=== PATIENT | male | born 1930 | race Caucasian/White ===

== ENCOUNTER 2017-03-31 18:47 | Inpatient (IN) | payer MEDICARE, BC ==
[~2017-03-31 18:47] MED LIST: ICAPCAP
[2017-03-31 18:49] VITALS: BP 168/80; PULSE 106; RESP 22; TEMP 98.3; O2SAT 88
[2017-03-31 19:11] VITALS: BP 149/82
[2017-03-31] MEDS ORDERED: MULT-142 (19:11)
[2017-03-31] MEDS ORDERED: SODIUM CHLORIDE 0.9% FLUSH 10 ML FLUSH IVF PRN (19:15)
[2017-03-31] MEDS ORDERED: DILTIAZEM HCL 25 MG/5 ML VIAL IV ONE (19:15)
--- NOTE | 2017-03-31 19:35 | PD ---
HPI Chief Complaint: Respiratory Symptoms Time Seen by Provider: 19:03 Travel History International Travel<30 days: No Contact w/Intl Traveler<30days: No Traveled to known affect area: No History of Present Illness HPI Patient is an 87 year old male presenting for evaluation of chest congestion, SOB, productive cough. Symptoms started 1 week ago. He reports chills and night sweats. SOB is worse with exertion and patient feels as if his heart is racing. He denies any N/V diarrhea, abdominal pain, chest pain. Pt denies any medical history but he does not follow with a PCP. PFS Past Medical History Medical History: Denies Significant Hx Diminished Hearing: Yes (DEAF L, HOPI R - HEARING AID) Musculoskeletal: No Neurologic: No Reproductive: No Pneumonia: Yes Tetanus Vaccination: Unknown Influenza Vaccination: No Past Surgical History Cholecystectomy: Yes Ear Surgery: Yes (RIGHT EAR) Social History Alcohol Use: No Tobacco Use: No Substance Use: No Allergies-Medications (Allergen,Severity, Reaction): Coded Allergies: No Known Allergies (Unverified Adverse Reaction, Unknown, 03/31/17) Reported Meds & Prescriptions Reported Meds & Active Scripts Active Reported Multi Vitamin and Mineral (Multiple Vitamins W/ Minerals) 7.5 Mg Iron-400 Mcg Tab Review of Systems Except as stated in HPI: all other systems reviewed are Neg General / Constitutional: Positive: Chills, Other (night sweats) Eyes: No: Blurred Vision HENT: No: Headaches Cardiovascular: Positive: Palpitations, Tachycardia, Dyspnea on exertion, No: Chest Pain or Discomfort, Edema Respiratory: Positive: Cough, Shortness of Breath, No: Wheezing, Pleuritic Pain Gastrointestinal: No: Nausea, Vomiting, Abdominal Pain Genitourinary: No: Dysuria Musculoskeletal: No: Myalgias Neurologic: Positive: Dizziness, No: Weakness Physical Exam Narrative GENERAL: Thin, well-developed, alert male. Resting comfortably in no acute distress. SKIN: Warm and dry. HEAD: Atraumatic. Normocephalic. EYES: Pupils equal and round. No scleral icterus. No injection or drainage. ENT: No nasal bleeding or discharge. Mucous membranes pink and moist. NECK: Trachea midline. No JVD. CARDIOVASCULAR: Irregularly irregular, tachycardic RESPIRATORY: No accessory muscle use. Clear but diminished in bases. GASTROINTESTINAL: Abdomen soft, non-tender, nondistended. Hepatic and splenic margins not palpable. MUSCULOSKELETAL: Extremities without clubbing, cyanosis, or edema. No obvious deformities. NEUROLOGICAL: Awake and alert. No obvious cranial nerve deficits. Motor grossly within normal limits. Five out of 5 muscle strength in the arms and legs. Normal speech. PSYCHIATRIC: Appropriate mood and affect; insight and judgment normal. Data Data Last Documented VS Vital Signs Date Time Temp Pulse Resp B/P (MAP) Pulse Ox O2 Delivery O2 Flow Rate FiO2 03/31/17 20:27 110 22 162/70 (100) 96 Nasal Cannula 2.00 03/31/17 18:49 98.3 Orders Orders Complete Blood Count With Diff (03/31/17 19:15) Comprehensive Metabolic Panel (03/31/17 19:15) B-Type Natriuretic Peptide (03/31/17 19:15) Act Partial Throm Time (Ptt) (03/31/17 19:15) Prothrombin Time / Inr (Pt) (03/31/17 19:15) Magnesium (Mg) (03/31/17 19:15) Ckmb (Isoenzyme) Profile (03/31/17 19:15) Troponin I (03/31/17 19:15) Arterial Blood Gas (Abg) (03/31/17 19:15) Urinalysis - C+S If Indicated (03/31/17 19:15) Iv Access Insert/Monitor (03/31/17 19:15) Electrocardiogram (03/31/17 19:15) Ecg Monitoring (03/31/17 19:15) Oximetry (03/31/17 19:15) Oxygen Administration (03/31/17 19:15) Chest, Single Ap (03/31/17 19:15) Sodium Chloride 0.9% Flush (Ns Flush) (03/31/17 19:15) Diltiazem Inj (Cardizem Inj) (03/31/17 19:15) Ct Pulmonary Angiogram (03/31/17 ) Iohexol 350 Inj (Omnipaque 350 Inj) (03/31/17 21:06) Ceftriaxone Inj (Rocephin Inj) (03/31/17 21:45) Azithromycin Inj (Zithromax Inj) (03/31/17 21:45) Methylprednisolone So Succ Inj (Solumedr (03/31/17 21:45) Albuterol-Ipratropium Neb (Duoneb Neb) (03/31/17 21:45) Blood Culture (03/31/17 21:46) Labs Laboratory Tests Test 03/31/17 19:15 03/31/17 19:45 03/31/17 21:30 White Blood Count 15.8 TH/MM3 Red Blood Count 4.25 MIL/MM3 Hemoglobin 13.2 GM/DL Hematocrit 38.7 % Mean Corpuscular Volume 91.1 FL Mean Corpuscular Hemoglobin 31.0 PG Mean Corpuscular Hemoglobin Concent 34.0 % Red Cell Distribution Width 16.1 % Platelet Count 235 TH/MM3 Mean Platelet Volume 8.5 FL Neutrophils (%) (Auto) 92.0 % Lymphocytes (%) (Auto) 4.0 % Monocytes (%) (Auto) 3.6 % Eosinophils (%) (Auto) 0.1 % Basophils (%) (Auto) 0.3 % Neutrophils # (Auto) 14.5 TH/MM3 Lymphocytes # (Auto) 0.6 TH/MM3 Monocytes # (Auto) 0.6 TH/MM3 Eosinophils # (Auto) 0.0 TH/MM3 Basophils # (Auto) 0.1 TH/MM3 CBC Comment DIFF FINAL Differential Comment Prothrombin Time 11.2 SEC Prothromb Time International Ratio 1.1 RATIO Activated Partial Thromboplast Time 28.9 SEC Blood Urea Nitrogen 34 MG/DL Creatinine 1.12 MG/DL Random Glucose 124 MG/DL Total Protein 7.1 GM/DL Albumin 3.4 GM/DL Calcium Level 8.8 MG/DL Magnesium Level 1.9 MG/DL Alkaline Phosphatase 67 U/L Aspartate Amino Transf (AST/SGOT) 16 U/L Alanine Aminotransferase (ALT/SGPT) 9 U/L Total Bilirubin 1.4 MG/DL Sodium Level 141 MEQ/L Potassium Level 3.9 MEQ/L Chloride Level 105 MEQ/L Carbon Dioxide Level 26.8 MEQ/L Anion Gap 9 MEQ/L Estimat Glomerular Filtration Rate 62 ML/MIN Total Creatine Kinase 73 U/L Troponin I LESS THAN 0.02 NG/ML B-Type Natriuretic Peptide 101 PG/ML Blood Gas Puncture Site RT RADIAL Blood Gas Patient Temperature 37.0 Blood Gas HCO3 23 mmol/L Blood Gas Base Excess -0.2 mmol/L Blood Gas Oxygen Saturation 89 % Arterial Blood pH 7.50 Arterial Blood Partial Pressure CO2 30 mmHg Arterial Blood Partial Pressure O2 55 mmHG Arterial Blood Oxygen Content 15.8 Vol % Arterial Blood Carboxyhemoglobin 1.9 % Arterial Blood Methemoglobin 0.4 % Blood Gas Hemoglobin 12.7 G/DL Oxygen Delivery Device NASAL CANNULA Blood Gas Liter Flow 2 L/M Urine Color YELLOW Urine Turbidity CLEAR Urine pH 5.5 Urine Specific [place] GREATER THAN 1.050 Urine Protein 30 mg/dL Urine Glucose (UA) NEG mg/dL Urine Ketones 40 mg/dL Urine Occult Blood NEG Urine Nitrite NEG Urine Bilirubin NEG Urine Urobilinogen 2.0 MG/DL Urine Leukocyte Esterase NEG Urine RBC 1 /hpf Urine WBC 1 /hpf Urine Squamous Epithelial Cells <1 /hpf Urine Mucus FEW /lpf Microscopic Urinalysis Comment CULT NOT INDICATED MDM Medical Decision Making Medical Screen Exam Complete: Yes Emergency Medical Condition: Yes Interpretation(s) Last Impressions Chest X-Ray 03/31/17 1915 Signed Impressions: Service Date/Time: Friday, March 31, 2017 19:33 - CONCLUSION: No acute disease. Baldemar Donato MD CT Angiography 03/31/17 0000 Signed Impressions: Service Date/Time: Friday, March 31, 2017 21:02 - CONCLUSION: 1. No evidence of pulmonary embolism. 2. Patchy opacities within the right mid lung anteriorly as well as the posterior lung bases bilaterally suggestive of probable pneumonia. 3. Underlying emphysematous changes bilaterally. 4. Coronary artery calcifications. 5. Biapical fibrotic scarring. Baldemar Donato MD Laboratory Tests Test 03/31/17 19:15 03/31/17 19:45 White Blood Count 15.8 TH/MM3 Red Blood Count 4.25 MIL/MM3 Hemoglobin 13.2 GM/DL Hematocrit 38.7 % Mean Corpuscular Volume 91.1 FL Mean Corpuscular Hemoglobin 31.0 PG Mean Corpuscular Hemoglobin Concent 34.0 % Red Cell Distribution Width 16.1 % Platelet Count 235 TH/MM3 Mean Platelet Volume 8.5 FL Neutrophils (%) (Auto) 92.0 % Lymphocytes (%) (Auto) 4.0 % Monocytes (%) (Auto) 3.6 % Eosinophils (%) (Auto) 0.1 % Basophils (%) (Auto) 0.3 % Neutrophils # (Auto) 14.5 TH/MM3 Lymphocytes # (Auto) 0.6 TH/MM3 Monocytes # (Auto) 0.6 TH/MM3 Eosinophils # (Auto) 0.0 TH/MM3 Basophils # (Auto) 0.1 TH/MM3 CBC Comment DIFF FINAL Differential Comment Prothrombin Time 11.2 SEC Prothromb Time International Ratio 1.1 RATIO Activated Partial Thromboplast Time 28.9 SEC Blood Urea Nitrogen 34 MG/DL Creatinine 1.12 MG/DL Random Glucose 124 MG/DL Total Protein 7.1 GM/DL Albumin 3.4 GM/DL Calcium Level 8.8 MG/DL Magnesium Level 1.9 MG/DL Alkaline Phosphatase 67 U/L Aspartate Amino Transf (AST/SGOT) 16 U/L Alanine Aminotransferase (ALT/SGPT) 9 U/L Total Bilirubin 1.4 MG/DL Sodium Level 141 MEQ/L Potassium Level 3.9 MEQ/L Chloride Level 105 MEQ/L Carbon Dioxide Level 26.8 MEQ/L Anion Gap 9 MEQ/L Estimat Glomerular Filtration Rate 62 ML/MIN Total Creatine Kinase 73 U/L Troponin I LESS THAN 0.02 NG/ML B-Type Natriuretic Peptide 101 PG/ML Blood Gas Puncture Site RT RADIAL Blood Gas Patient Temperature 37.0 Blood Gas HCO3 23 mmol/L Blood Gas Base Excess -0.2 mmol/L Blood Gas Oxygen Saturation 89 % Arterial Blood pH 7.50 Arterial Blood Partial Pressure CO2 30 mmHg Arterial Blood Partial Pressure O2 55 mmHG Arterial Blood Oxygen Content 15.8 Vol % Arterial Blood Carboxyhemoglobin 1.9 % Arterial Blood Methemoglobin 0.4 % Blood Gas Hemoglobin 12.7 G/DL Oxygen Delivery Device NASAL CANNULA Blood Gas Liter Flow 2 L/M Vital Signs Date Time Temp Pulse Resp B/P (MAP) Pulse Ox O2 Delivery O2 Flow Rate FiO2 03/31/17 19:22 93 Nasal Cannula 2.00 03/31/17 19:11 102 24 92 Nasal Cannula 2.00 03/31/17 19:11 149/82 (104) 03/31/17 18:49 98.3 106 22 168/80 (109) 88 Room Air Differential Diagnosis CHF versus A. fib with RVR versus metabolic abnormality versus pneumonia versus PE versus other Narrative Course Patient is an 87-year-old male presenting to evaluation of shortness of breath, chest congestion, cough. Patient is a significant past medical history likely because he does not see a doctor. On arrival patient was tachycardic and noted to be in atrial fibrillation with rapid ventricular response with a rate of 113. He ordered and pending. Patient was placed on monitor and storage bin tender and continuous pulse oximetry. Cardizem 10 mg IV 1 dose was ordered. He was placed on oxygen, O2 sats on arrival was 88% on room air. Patient is currently 96% on 3 L. CBC with a white count of 15.8 with left shift BNP is 101 Chemistries BUN of 34, bilirubin 1.4, troponin is negative 1 Chest x-ray was read by the radiologist shows no acute disease. CT angiogram shows no evidence of PE, patchy opacity is within the right mid lung anteriorly as well as posteriorly lung bases bilaterally suggestive of probable pneumonia. This underlying emphysematous changes bilaterally coronary calcifications. Rocephin and azithromycin ordered, DuoNeb 3 as well as IV Solu-Medrol. Patient remained in atrial fibrillation with a rate of 100-103. [facility] paged for admission. Discussed with Dr. Min who accepted admit. Admit orders placed. Sepsis Criteria SIRS Criteria (2 or more): Heart rate over 90, RR > 20 or PaCO2 < 32, WBC > 76445, < 4000 or > 10% bands Sepsis Criteria (SIRS+source): Infect source susp/known Diagnosis Primary Impression: Pneumonia Qualified Codes: J18.9 - Pneumonia, unspecified organism Additional Impressions: Atrial fibrillation with RVR Hypoxia Sepsis Qualified Codes: A41.9 - Sepsis, unspecified organism Admitting Information Admitting Physician Requests: Admit Condition: Stable Romina Velasquez Mar 31, 2017 19:35
[2017-03-31 19:38] VITALS: BP 135/76; PULSE 100; RESP 55; O2SAT 94
[2017-03-31 19:49] LABS: AUTOMATED NEUTROPHIL # 14.5 TH/MM3 (1.8-7.7); BASOPHIL # 0.1 TH/MM3 (0-0.2); BASOPHIL % 0.3 % (0.0-2.0); EOSINOPHIL % 0.1 % (0.0-4.0); HEMATOCRIT 38.7 % (39.0-51.0); HEMO FLAGS DIFF FINAL; LYMPHOCYTE # 0.6 TH/MM3 (1.0-4.8); MEAN CELL VOLUME 91.1 FL (80.0-100.0); MONO % 3.6 % (0.0-8.0); PLATELET COUNT 235 TH/MM3 (150-450); RED BLOOD COUNT 4.25 MIL/MM3 (4.50-5.90); RED CELL DISTRIBUTION WIDTH 16.1 % (11.6-17.2); WHITE BLOOD COUNT 15.8 TH/MM3 (4.0-11.0)
[2017-03-31 20:12] LABS: APTT (PATIENT) 28.9 SEC (24.3-30.1); INTERNATIONAL NORMALIZED RATIO 1.1 RATIO; PROTHROMBIN TIME - PATIENT 11.2 SEC (9.8-11.6)
[2017-03-31 20:16] LABS: ALT (GPT) 9 U/L (12-78); ANION GAP 9 MEQ/L (5-15); AST (GOT) 16 U/L (15-37); BICARBONATE 26.8 MEQ/L (21.0-32.0); BLOOD UREA NITROGEN 34 MG/DL (7-18); CHLORIDE 105 MEQ/L (98-107); GLOMERULAR FILTRATION RATE 62 ML/MIN (>89); MAGNESIUM 1.9 MG/DL (1.5-2.5); POTASSIUM 3.9 MEQ/L (3.5-5.1); SODIUM (NA) 141 MEQ/L (136-145)
[2017-03-31 20:21] LABS: ALKALINE PHOSPHATASE 67 U/L (45-117); TOTAL BILIRUBIN ADULT 1.4 MG/DL (0.2-1.0)
[2017-03-31 20:26] LABS: CREATINE KINASE 73 U/L (39-308)
[2017-03-31 20:27] VITALS: BP 162/70; PULSE 110; RESP 22; O2SAT 96
--- NOTE | 2017-03-31 20:46 | RADRPT ---
EXAM DATE/TIME: 03/31/2017 19:33 [facility] COMPARISON: CHEST SINGLE AP, April 07, 2014, 10:49. INDICATIONS : Short of breath. MEDICAL HISTORY : None. SURGICAL HISTORY : None. ENCOUNTER: Initial ACUITY: 1 week PAIN SCORE: 0/10 LOCATION: Bilateral chest FINDINGS: A single view of the chest demonstrates the lungs to be symmetrically aerated without evidence of mas s, infiltrate or effusion. The cardiomediastinal contours are unremarkable. Osseous structures are intact. CONCLUSION: No acute disease. Baldemar Donato MD on March 31, 2017 at 20:43 Board Certified Radiologist. This report was verified electronically.
[2017-03-31] MEDS ORDERED: IOHEXOL 350 MG/ML 10 ML VIAL (for RAD DIAG) IVCONTRAST ONE (21:06)
[2017-03-31 21:31] LABS: BLOOD GAS BASE EXCESS -0.2 mmol/L (-2-2); BLOOD GAS CARBOXYHEMOGLOBIN 1.9 % (0-4); BLOOD GAS HCO3 23 mmol/L (22-26); BLOOD GAS METHEMOGLOBIN 0.4 % (0-2); BLOOD GAS O2 HGB SATURATION 89 % (90-100); BLOOD GAS OXYGEN CONTENT 15.8 Vol % (12.0-20.0); BLOOD GAS PCO2 30 mmHg (38-42); BLOOD GAS PO2 55 mmHG (61-120); BLOOD GAS TOTAL HGB 12.7 G/DL (12.0-16.0); CRITICAL VALUE YES; DRAW SITE RT RADIAL; LITER FLOW 2 L/M; NUMBER OF ARTERIAL PUNCTURES 1; OXYGEN DEVICE NASAL CANNULA; STAT YES; ULNAR PULSE PRESENT
--- NOTE | 2017-03-31 21:34 | RADRPT ---
EXAM DATE/TIME: 03/31/2017 21:02 [facility] COMPARISON: No previous studies available for comparison. INDICATIONS : Shortness of breath. IV CONTRAST: 75 cc Omnipaque 350 (iohexol) IV RADIATION DOSE: 22.90 CTDIvol (mGy) MEDICAL HISTORY : None SURGICAL HISTORY : Cholecystectomy. ENCOUNTER: Initial ACUITY: 1 day PAIN SCALE: 3/10 LOCATION: Bilateral chest TECHNIQUE: Volumetric scanning of the chest was performed using a pulmonary embolism protocol MIP images were re constructed. Using automated exposure control and adjustment of the mA and/or kV according to patien t size, radiation dose was kept as low as reasonably achievable to obtain optimal diagnostic quality images. DICOM format image data is available electronically for review and comparison. Follow-up recommendations for detected pulmonary nodules are based at a minimum on nodule size and pa tient risk factors according to Fleischner Society Guidelines. FINDINGS: PULMONARY ARTERIES: No filling defects are seen in the pulmonary arteries through the segmental level. LUNGS: Patchy opacities are noted within the bilateral lower lobes posteriorly as well as within the right m id lung anteriorly with probable pneumonia. Underlying emphysematous changes are noted bilaterally. B iapical fibrotic scarring is noted. PLEURAE: There is no pleural thickening or pleural effusion. MEDIASTINUM: There is good visualization of the great vessels of the middle mediastinum. No evidence of mediastin al or hilar adenopathy/mass. Coronary artery calcifications are noted. MUSCULOSKELETAL: Within normal limits for patient age. MISCELLANEOUS: The visualized upper abdominal organs demonstrate no acute abnormality. CONCLUSION: 1. No evidence of pulmonary embolism. 2. Patchy opacities within the right mid lung anteriorly as well as the posterior lung bases bilatera lly suggestive of probable pneumonia. 3. Underlying emphysematous changes bilaterally. 4. Coronary artery calcifications. 5. Biapical fibrotic scarring. Baldemar Donato MD on March 31, 2017 at 21:27 Board Certified Radiologist. This report was verified electronically.
[2017-03-31] MEDS ORDERED: AZITHROMYCIN INJ 500 MG in SODIUM CHLOR 0.9% 250 ML INJ 250 ML IV ONE (21:45)
[2017-03-31] MEDS ORDERED: methylPREDNISolone SOD SUCC 125 MG/2 ML VIAL IV PUSH ONE (21:45)
[2017-03-31] MEDS ORDERED: cefTRIAXone INJ 1,000 MG in SODIUM CHLORIDE 0.9% INJ 100 ML IV ONE (21:45)
[2017-03-31 22:00] VITALS: BP 141/74; PULSE 88; RESP 23; O2SAT 96
[2017-03-31] MEDS: RESP: ALBUTEROL 2.5 MG/IPRATROPIUM 0.5 MG NEB (SCH) INH (22:02)
[2017-03-31 22:07] LABS: BLOOD, URINE NEG (NEG); COMMENT (UR) CULT NOT INDICATED; CULTURE IF INDICATED CULT NOT INDICATED; GLUCOSE,URINE NEG (NEG); KETONE, URINE 40 mg/dL (NEG); MUCUS URINE FEW /lpf (OCC); NITRITE,URINE NEG (NEG); PH, URINE 5.5 (5.0-8.5); SQUAMOUS EPITHELIAL CELL URINE <1 /hpf (0-5); URINE COLOR YELLOW (YELLW/STRAW)
[2017-03-31] MEDS ORDERED: NALOXONE HCL 0.4 MG/ML AMP IV PUSH PRN (22:30)
[2017-03-31] MEDS ORDERED: RESP: IPRATROPIUM 0.5 MG/2.5 ML NEB NEB PRN (22:30)
[2017-03-31] MEDS ORDERED: ASPIRIN EC 325 MG TABEC PO ONE (22:30)
[2017-03-31] MEDS ORDERED: FAMOTIDINE 20 MG TAB PO ONE (22:30)
[2017-03-31] MEDS ORDERED: SODIUM CHLORIDE 0.9% FLUSH 10 ML FLUSH IV FLUSH PRN (22:30)
--- NOTE | 2017-03-31 23:24 | HHI.HP ---
HPI Service [facility] Primary Care Physician No Primary Care Physician Admission Diagnosis SEPSIS, PNA, AFIB W/RVR Diagnoses: Travel History International Travel<30 Days: No Contact w/Intl Traveler <30 Da: No Traveled to Known Affected Are: No History of Present Illness couldnt walk more than 5 feet or else i collapsed something went fast when i walked and i had to sit down thats the reason to come here was short of breath started on friday- about 3 days ago no fever coughing a lot- and has productive yellow sputum- can see that copious sputum at bedside also felt dizziness with these palpitations and thats why stopped- and dizziness will go away took some cough medicine over the counter does not go to any doc no med hx that he knows of ' Past Family Social History Past Medical History none that he knows of Past Surgical History cholecystectomy a year ago Allergies: Coded Allergies: No Known Allergies (Unverified Allergy, Unknown, 03/31/17) Family History sister- cancer- takes meds 5 days a month for it/ Social History used to smoke, quit 50yrs ago never drink etoh no drugs lives by myself, walks on his own, still drives, just renewed drivers license this week Physical Exam Vital Signs Vital Signs Date Time Temp Pulse Resp B/P (MAP) Pulse Ox O2 Delivery O2 Flow Rate FiO2 03/31/17 22:00 88 23 141/74 (96) 96 Nasal Cannula 2.00 03/31/17 20:27 110 22 162/70 (100) 96 Nasal Cannula 2.00 03/31/17 19:38 100 55 135/76 (95) 94 Room Air 03/31/17 19:22 93 Nasal Cannula 2.00 03/31/17 19:11 102 24 92 Nasal Cannula 2.00 03/31/17 19:11 149/82 (104) 03/31/17 18:49 98.3 106 22 168/80 (109) 88 Room Air Physical Exam GENERAL: This is a well-nourished, well-developed patient, in no apparent distress. copious yellow secretions next to him in basin SKIN: No rashes, ecchymoses or lesions. Cool and dry. HEAD: Atraumatic. Normocephalic. No temporal or scalp tenderness. EYES: No scleral icterus. No injection or drainage. ENT: Throat without erythema, tonsillar hypertrophy or exudate. Uvula midline. Airway patent. NECK: Trachea midline. No JVD CARDIOVASCULAR: Regular rate and rhythm without murmurs, gallops, or rubs. RESPIRATORY: bilaterally decreased air entry, with crepitations at bases GASTROINTESTINAL: Abdomen soft, non-tender, nondistended. No guarding. MUSCULOSKELETAL: Extremities without clubbing, cyanosis, or edema. . No calf tenderness. NEUROLOGICAL: Awake and alert. Motor and sensory grossly within normal limits. Normal speech. Laboratory Laboratory Tests Test 03/31/17 19:15 03/31/17 19:45 03/31/17 21:30 White Blood Count 15.8 Red Blood Count 4.25 Hemoglobin 13.2 Hematocrit 38.7 Mean Corpuscular Volume 91.1 Mean Corpuscular Hemoglobin 31.0 Mean Corpuscular Hemoglobin Concent 34.0 Red Cell Distribution Width 16.1 Platelet Count 235 Mean Platelet Volume 8.5 Neutrophils (%) (Auto) 92.0 Lymphocytes (%) (Auto) 4.0 Monocytes (%) (Auto) 3.6 Eosinophils (%) (Auto) 0.1 Basophils (%) (Auto) 0.3 Neutrophils # (Auto) 14.5 Lymphocytes # (Auto) 0.6 Monocytes # (Auto) 0.6 Eosinophils # (Auto) 0.0 Basophils # (Auto) 0.1 CBC Comment DIFF FINAL Differential Comment Prothrombin Time 11.2 Prothromb Time International Ratio 1.1 Activated Partial Thromboplast Time 28.9 Blood Urea Nitrogen 34 Creatinine 1.12 Random Glucose 124 Total Protein 7.1 Albumin 3.4 Calcium Level 8.8 Magnesium Level 1.9 Alkaline Phosphatase 67 Aspartate Amino Transf (AST/SGOT) 16 Alanine Aminotransferase (ALT/SGPT) 9 Total Bilirubin 1.4 Sodium Level 141 Potassium Level 3.9 Chloride Level 105 Carbon Dioxide Level 26.8 Anion Gap 9 Estimat Glomerular Filtration Rate 62 Total Creatine Kinase 73 Troponin I LESS THAN 0.02 B-Type Natriuretic Peptide 101 Blood Gas Puncture Site RT RADIAL Blood Gas Patient Temperature 37.0 Blood Gas HCO3 23 Blood Gas Base Excess -0.2 Blood Gas Oxygen Saturation 89 Arterial Blood pH 7.50 Arterial Blood Partial Pressure CO2 30 Arterial Blood Partial Pressure O2 55 Arterial Blood Oxygen Content 15.8 Arterial Blood Carboxyhemoglobin 1.9 Arterial Blood Methemoglobin 0.4 Blood Gas Hemoglobin 12.7 Oxygen Delivery Device NASAL CANNULA Blood Gas Liter Flow 2 Urine Color YELLOW Urine Turbidity CLEAR Urine pH 5.5 Urine Specific [place] GREATER THAN 1.050 Urine Protein 30 Urine Glucose (UA) NEG Urine Ketones 40 Urine Occult Blood NEG Urine Nitrite NEG Urine Bilirubin NEG Urine Urobilinogen 2.0 Urine Leukocyte Esterase NEG Urine RBC 1 Urine WBC 1 Urine Squamous Epithelial Cells <1 Urine Mucus FEW Microscopic Urinalysis Comment CULT NOT INDICATED Date/Time Source Procedure Growth Status 03/31/17 22:00 Blood Peripheral Aerobic Blood Culture Pending Received 03/31/17 22:00 Blood Peripheral Anaerobic Blood Culture Pending Received Result Diagram: 03/31/17191403/31/171914 Imaging Last 48 hours Impressions Chest X-Ray 03/31/171914 Signed Impressions: Service Date/Time: Friday, March 31, 2017 19:33 - CONCLUSION: No acute disease. Baldemar Donato MD CT Angiography 03/31/17 0000 Signed Impressions: Service Date/Time: Friday, March 31, 2017 21:02 - CONCLUSION: 1. No evidence of pulmonary embolism. 2. Patchy opacities within the right mid lung anteriorly as well as the posterior lung bases bilaterally suggestive of probable pneumonia. 3. Underlying emphysematous changes bilaterally. 4. Coronary artery calcifications. 5. Biapical fibrotic scarring. MD Olga Perezi VTE Risk Assessment Caprini VTE Risk Assessment: Mod/High Risk (score >= 2) Caprini Risk Assessment Model Point Value = 1 Point Value = 2 Point Value = 3 Point Value = 5 Age 41-60 Minor surgery BMI > 25 kg/m2 Swollen legs Varicose veins or History of unexplained or recurrent spontaneous Oral contraceptives or hormone replacement Sepsis (< 1 month) Serious lung disease, including pneumonia (< 1 month) Abnormal pulmonary function Acute myocardial infarction Congestive heart failure (< 1 month) History of inflammatory bowel disease Medical patient at bed rest Age 61-74 Arthroscopic surgery Major open surgery (> 45 min) Laparoscopic surgery (> 45 min) Malignancy Confined to bed (> 72 hours) Immobilizing plaster cast Central venous access Age >= 75 History of VTE Family history of VTE Factor V Leiden Prothrombin [id number] Lupus anticoagulant Anticardiolipin antibodies Elevated serum homocysteine Heparin-induced thrombocytopenia Other congenital or acquired thrombophilia Stroke (< 1 month) Elective arthroplasty Hip, pelvis, or leg fracture Acute spinal cord injury (< 1 month) Prophylaxis Regimen Total Risk Factor Score Risk Level Prophylaxis Regimen 0-1 Low Early ambulation 2 Moderate Order ONE of the following: *Sequential Compression Device (SCD) *Heparin 5000 units SQ BID 3-4 Higher Order ONE of the following medications: *Heparin 5000 units SQ TID *Enoxaparin/Lovenox 40 mg SQ daily (WT < 150 kg, CrCl > 30 mL/min) *Enoxaparin/Lovenox 30 mg SQ daily (WT < 150 kg, CrCl > 10-29 mL/min) *Enoxaparin/Lovenox 30 mg SQ BID (WT < 150 kg, CrCl > 30 mL/min) AND/OR *Sequential Compression Device (SCD) 5 or more Highest Order ONE of the following medications: *Heparin 5000 units SQ TID (Preferred with Epidurals) *Enoxaparin/Lovenox 40 mg SQ daily (WT < 150 kg, CrCl > 30 mL/min) *Enoxaparin/Lovenox 30 mg SQ daily (WT < 150 kg, CrCl > 10-29 mL/min) *Enoxaparin/Lovenox 30 mg SQ BID (WT < 150 kg, CrCl > 30 mL/min) AND *Sequential Compression Device (SCD) Assessment and Plan Assessment and Plan pneumonia sirs afib- new onset copd exacerbation nebs levofloxacin 750mg iv q24hrs will control hr with iv fluids/ treatment of fever small dose po cardizem echo in am will need to talk with nephew in [place] / daughter in [place] - so that he can have pcp follow up, anticoagulation fu dvt prophylaxis with lovenox gi prophylaxis with ranitidine Physician Certification Order for Inpatient Services The services are ordered in accordance with Medicare regulations or non- Medicare payer requirements, as applicable. In the case of services not specified as inpatient-only, they are appropriately provided as inpatient services in accordance with the 2-midnight benchmark. days is the estimated time the patient will need to remain in the hospital, assuming treatment plan goals are met and no additional complications. Dinesh Min MD Mar 31, 2017 23:24
[2017-04-01] VITALS (9 sets, daily range): BP systolic 101–146; BP diastolic 55–70; PULSE 85–108; RESP 16–17; TEMP 94.5–97.3; O2SAT 90–94
[2017-04-01] MEDS ORDERED: LEVOFLOXACIN 750 MG PREMIX INJ 150 ML IV SCH
[2017-04-01 02:14] LABS: AUTOMATED NEUTROPHIL # 17.1 TH/MM3 (1.8-7.7); BASOPHIL % 0.2 % (0.0-2.0); HEMATOCRIT 34.6 % (39.0-51.0); HEMO FLAGS DIFF FINAL; LYMPH % 1.4 % (9.0-44.0); LYMPHOCYTE # 0.2 TH/MM3 (1.0-4.8); MEAN CELL VOLUME 91.3 FL (80.0-100.0); MEAN CORPUSCULAR HEMOGLOBIN 30.9 PG (27.0-34.0); MEAN CORPUSCULAR HGB CONC 33.8 % (32.0-36.0); NEUT % 96.4 % (16.0-70.0); PLATELET COUNT 205 TH/MM3 (150-450); RED BLOOD COUNT 3.79 MIL/MM3 (4.50-5.90); RED CELL DISTRIBUTION WIDTH 16.2 % (11.6-17.2); WHITE BLOOD COUNT 17.7 TH/MM3 (4.0-11.0)
[2017-04-01 02:42] LABS: POTASSIUM 3.5 MEQ/L (3.5-5.1)
[2017-04-01] MEDS: RESP: IPRATROPIUM 0.5 MG/2.5 ML NEB NEB SCH ×4 (04:15→21:23)
[2017-04-01] MEDS ORDERED: DOCUSATE SODIUM 100 MG CAP PO PRN (06:45)
[2017-04-01] MEDS ORDERED: ACETAMINOPHEN 325 MG TAB PO PRN (06:45)
[2017-04-01] MEDS ORDERED: ONDANSETRON HCL 4 MG/2 ML VIAL IV PUSH PRN (06:45)
[2017-04-01] MEDS ORDERED: POTASSIUM CHLORIDE 10 MEQ CONTROLLED RELEASE TAB PO ONE (06:45)
[2017-04-01] MEDS ORDERED: CALCIUM CARBONATE 500 MG CHEWABLE TAB CHEW PRN (06:45)
[2017-04-01] MEDS ORDERED: ASPIRIN EC 325 MG TABEC PO SCH (09:00)
[2017-04-01] MEDS ORDERED: ENOXAPARIN SODIUM 40 MG/0.4 ML SYRINGE SQ SCH (09:00)
[2017-04-01] MEDS: FAMOTIDINE 20 MG TAB PO SCH (09:51)
[2017-04-01] MEDS: DILTIAZEM HCL 30 MG TAB PO SCH ×2 (09:51→12:58)
[2017-04-01] MEDS: SODIUM CHLORIDE 0.9% FLUSH 10 ML FLUSH IV FLUSH SCH ×2 (09:52→22:24)
--- NOTE | 2017-04-01 16:25 | ECHRPT ---
Indication: ATRIAL FIBRILLATION/FLUTTER CONCLUSIONS Technically difficult study The left ventricular systolic function is grossly normal on limited imaging. Trace mitral valve regurgitation. There is trace tricuspid valve regurgitation. BP: 106 / 69 HR: 81 Rhythm: Sinus MEASUREMENTS (Male / Female) Normal Values Technical Quality:Technically difficult study 2D ECHO LV Diastolic Diameter PLAX 4.6 cm 4.2 - 5.9 / 3.9 - 5.3 cm LV Systolic Diameter PLAX 2.8 cm IVS Diastolic Thickness 0.7 cm 0.6 - 1.0 / 0.6 - 0.9 cm LVPW Diastolic Thickness 0.7 cm 0.6 - 1.0 / 0.6 - 0.9 cm LV Relative Wall Thickness 0.3 RV Internal Dim ED PLAX 2.0 cm LVOT Diameter 2.4 cm Aortic Root Diameter 3.9 cm LA Systolic Diameter LX 3.1 cm 3.0 - 4.0 / 2.7 - 3.8 cm M-MODE AV Cusp Separation MM 1.6 cm DOPPLER AV Peak Velocity 150.0 cm/s AV Peak Gradient 9.0 mmHg AV Mean Gradient 5.0 mmHg AV Velocity Time Integral 24.6 cm LVOT Peak Velocity 58.1 cm/s LVOT Peak Gradient 1.4 mmHg LVOT Velocity Time Integral 9.7 cm AV Area Cont Eq vti 1.8 cm AV Area Cont Eq pk 1.8 cm Mitral E Point Velocity 59.2 cm/s Mitral A Point Velocity 40.5 cm/s Mitral E to A Ratio 1.5 LV E' Lateral Velocity 3.9 cm/s Mitral E to LV E' Lateral Ratio 15.2 LV E' Septal Velocity 5.7 cm/s Mitral E to LV E' Septal Ratio 10.5 TR Peak Velocity 225.0 cm/s TR Peak Gradient 20.3 mmHg Right Atrial Pressure 10.0 mmHg Pulmonary Artery Systolic Pressu 30.3 mmHg Right Ventricular Systolic Press 30.3 mmHg PV Peak Velocity 57.1 cm/s PV Peak Gradient 1.3 mmHg FINDINGS LEFT VENTRICLE Normal left ventricular size. Wall thickness is normal. The left ventricular systolic function is grossly normal on limited imaging. RIGHT VENTRICLE Normal right ventricular size and systolic function. LEFT ATRIUM The left atrial size is normal. RIGHT ATRIUM The right atrial size is normal. ATRIAL SEPTUM Normal atrial septal thickness. AORTA The aortic root and proximal ascending aorta are normal in size on limited imaging. MITRAL VALVE Structurally normal mitral valve. No mitral valve stenosis. Trace mitral valve regurgitation. AORTIC VALVE Trileaflet aortic valve. Sclerosis of the aortic valve without stenosis. No aortic valve stenosis or regurgitation. TRICUSPID VALVE Structurally normal tricuspid valve. There is trace tricuspid valve regurgitation. No tricuspid valve stenosis. PULMONARY VALVE The pulmonary valve is not well visualized. VESSELS The inferior vena cava is normal in size. PERICARDIUM No pericardial effusion. Pio Conway DO (Electronically Signed) Final Date:01 April 2017 16:24
--- NOTE | 2017-04-01 16:30 | HHI.PR ---
Subjective Remarks Follow-up pneumonia, A. fib. He feels better denies any complaints. Telemetry shows sinus rhythm. Patient wants aggressive treatment and full code. Seen with family. Discussed with RN Objective Vitals Vital Signs Date Time Temp Pulse Resp B/P (MAP) Pulse Ox O2 Delivery O2 Flow Rate FiO2 04/01/17 16:13 94 Nasal Cannula 2.00 04/01/17 15:07 3.00 04/01/17 12:00 96.6 85 16 101/59 (73) 94 04/01/17 08:00 97.3 108 16 131/69 (89) 90 04/01/17 04:08 95 04/01/17 04:00 96.3 107 16 106/69 (81) 94 04/01/17 00:38 93 22 146/68 (94) 94 Nasal Cannula 3.00 04/01/17 00:00 96.4 97 17 109/55 (73) 93 03/31/17 22:00 88 23 141/74 (96) 96 Nasal Cannula 2.00 03/31/17 22:00 96 Nasal Cannula 2.00 03/31/17 20:27 110 22 162/70 (100) 96 Nasal Cannula 2.00 03/31/17 19:38 100 55 135/76 (95) 94 Room Air 03/31/17 19:22 93 Nasal Cannula 2.00 03/31/17 19:11 102 24 92 Nasal Cannula 2.00 03/31/17 19:11 149/82 (104) 03/31/17 18:49 98.3 106 22 168/80 (109) 88 Room Air I/O 03/31/17 03/31/17 03/31/17 04/01/17 04/01/17 04/01/17 07:00 15:00 23:00 07:00 15:00 23:00 Intake Total 100 ml 490 ml Balance 100 ml 490 ml Intake Oral 240 ml IV Total 100 ml 250 ml # Voids 1 Result Diagram: 04/01/1715804/01/17158 Imaging Last Impressions Chest X-Ray 03/31/171914 Signed Impressions: Service Date/Time: Friday, March 31, 2017 19:33 - CONCLUSION: No acute disease. Baldemar Donato MD CT Angiography 03/31/17 0000 Signed Impressions: Service Date/Time: Friday, March 31, 2017 21:02 - CONCLUSION: 1. No evidence of pulmonary embolism. 2. Patchy opacities within the right mid lung anteriorly as well as the posterior lung bases bilaterally suggestive of probable pneumonia. 3. Underlying emphysematous changes bilaterally. 4. Coronary artery calcifications. 5. Biapical fibrotic scarring. Baldemar Donato MD Objective Remarks GENERAL: Well-developed and well-nourished SKIN: Warm and dry. HEAD: Atraumatic. Normocephalic. EYES: Pupils equal and round. No scleral icterus. No injection or drainage. ENT: No nasal bleeding or discharge. Mucous membranes pink and moist. NECK: Trachea midline. No JVD. CARDIOVASCULAR: Regular rate and rhythm. RESPIRATORY: No accessory muscle use. Clear to auscultation. Decreased Breath sounds equal bilaterally. GASTROINTESTINAL: Abdomen soft, non-tender, nondistended. MUSCULOSKELETAL: Extremities without clubbing, cyanosis, or edema. No obvious deformities. NEUROLOGICAL: Awake and alert. No obvious cranial nerve deficits. Motor grossly within normal limits. Five out of 5 muscle strength in the arms and legs. Normal speech. PSYCHIATRIC: Appropriate mood and affect; insight and judgment normal. Procedures none A/P Problem List: (1) Sepsis ICD Code: A41.9 - Sepsis, unspecified organism Status: Acute (2) Pneumonia ICD Code: J18.9 - Pneumonia, unspecified organism Status: Acute (3) Hypoxia ICD Code: R09.02 - Hypoxemia Status: Acute (4) Atrial fibrillation with RVR ICD Code: I48.91 - Unspecified atrial fibrillation Status: Acute Assessment and Plan Pneumonia with hypoxia and severe sepsis. Clinically looking better continue IV Levaquin will increase dose to 750 mg daily. Check for influenza, pneumococcal and digital INR antigen and follow-up cultures. Continue IV hydration afib- new onset. JEF1MSonst score of 3 . Telemetry shows sinus rhythm. Continue aspirin for now. Switch Cardizem to Lopressor. Follow-up echocardiogram. For now continue Lovenox copd exacerbation . Improved continue nebulization Trop bump with coronary calcifications. Denies chest pain. Continue aspirin and start Lopressor. Consult cardiology. Obtain lipid profile dvt prophylaxis with lovenox gi prophylaxis with Pepcid Discharge Planning Not ready for discharge Problem Qualifiers (1) Sepsis: Qualified Codes: A41.9 - Sepsis, unspecified organism (2) Pneumonia: Qualified Codes: J18.9 - Pneumonia, unspecified organism Gaetano Hay MD Apr 01, 2017 16:30
--- NOTE | 2017-04-01 16:51 | EKG ---
Date Performed: 03/31/2017 Time Performed: 19:13:37 PTAGE: 87 years EKG: Sinus rhythm with frequent premature atrial and ventricular Contractions. RIGHT BUNDLE BRANCH BLOCK POSSIBLE ANTE ROSEPTAL MYOCARDIAL INFARCTION The atrial ectopy is frequent enough to meet criteria for a Possible m ulti focal atrial tachycardia in light of the variable P Wave configuration. When compared to previo us tracing, there has been an increase in The atrial ectopy, but no other significant serial change. ABNORMAL ECG PREVIOUS TRACING : 01/09/2015 01.01.26 DOCTOR: Roma Blanco Interpretating Date/Time 04/01/2017 16:49:56
[2017-04-01] MEDS ORDERED: PILL SPLITTER OTHER PRN (17:00)
[2017-04-01] MEDS ORDERED: NS + KCL 20 MEQ INJ 1,000 ML IV SCH (17:00)
[2017-04-01] MEDS: METOPROLOL TARTRATE 25 MG TAB PO SCH (22:23)
[2017-04-01] MEDS: ENOXAPARIN SODIUM 80 MG/0.8 ML SYRINGE SQ SCH (22:24)
[2017-04-02] VITALS: BP 107/58; PULSE 67; RESP 17; TEMP 95.6; O2SAT 98
[2017-04-02] MEDS: RESP: IPRATROPIUM 0.5 MG/2.5 ML NEB NEB SCH ×3 (03:10→15:59)
[2017-04-02 04:00] VITALS: BP 115/56; PULSE 82; RESP 17; TEMP 95.7; O2SAT 94
--- NOTE | 2017-04-02 06:06 | MB ---
cc: PIO MONSON DO DATE OF CONSULTATION April 01, 2017 REASON FOR CONSULTATION Possible atrial fibrillation, elevated troponin. HISTORY OF PRESENT ILLNESS Damien Arora is a pleasant 87-year-old male who presented to [facility] Emergency Room on March 01, 2017, due to shortness of breath. He states that whenever he would walk more than a couple feet he would start getting more and more short of breath. He has also had a cough which was productive of yellow sputum in copious amounts. He denies chest pain with any of his episodes. He has noticed some fevers and chills over the past few days. He took some [id number] cough medication and when it did not go away he presented to the emergency room. The patient states that he does not go to doctors and the first time he had been in the hospital was within the past year. In seeing him he is currently hemodynamically stable without chest pain or shortness of breath. PAST MEDICAL HISTORY Denies, although the patient does not go to a doctor and has not been in the hospital other than one year ago for a cholecystectomy. PAST SURGICAL HISTORY 1. Cholecystectomy (2015) ALLERGIES No known drug allergies. MEDICATIONS Multivitamin. FAMILY HISTORY Sister has some type of cancer for which he is unsure of. SOCIAL HISTORY The patient used to smoke but quit 50 years ago. He denies alcohol or drugs. He lives by himself. REVIEW OF SYSTEMS 14-systems were reviewed including osteopathic pertinent positives and negatives above, otherwise negative. PHYSICAL EXAMINATION VITAL SIGNS: Temperature 97.1, heart rate 95, blood pressure 102/63, respirations 16, pulse ox 94% on 3 liters. IN GENERAL: The patient appears well, in no acute distress, alert, awake and oriented x3. HEENT: Extraocular muscles intact. Mucous membranes moist. NECK: Supple. No JVD at 45 degrees. No carotid bruits heard bilaterally. Carotid upstroke is brisk in nature. HEART: Regular rate and rhythm. Positive first and second heart sounds with no noted murmurs, gallops or rubs. LUNGS: Decreased breath sounds bilaterally with scattered rhonchi. ABDOMEN: Soft, nontender, nondistended. No organomegaly noted. EXTREMITIES: No clubbing, cyanosis or edema. Femoral and distal pulses intact bilaterally. NEUROLOGICALLY: No focal deficits. SKIN: Warm, dry and intact. OSTEOPATHIC EXAM: No kyphoscoliosis, lordosis or paraspinal tender points. LABORATORY FINDINGS Hemoglobin 11.7, hematocrit 34.6, platelets 205. Potassium 3.5, BUN 28, creatinine 1.07, lactic acid 3.2. Troponin 0.18. BNP 101. ABGs- pH 7.50, pCO2 30, pO2 55, HCO3 23. ELECTROCARDIOGRAM (March 31, 2017 at 19:13) Sinus rhythm with frequent PACs, right bundle branch block, possible anterior septal myocardial infarction. IMPRESSIONS 1. Pneumonia. 2. Sepsis. 3. Hypoxemia. 4. Lactic acidosis 5. Elevated troponin. RECOMMENDATIONS 1. Mr. Arora presented with what appears to be pneumonia and hypoxemia as well as sepsis. 2. He has a mildly elevated troponin and this is most likely due to his underlying illness including hypoxemia, lactic acidosis and pneumonia. This does not seem to represent acute coronary syndrome. I did discuss with him consideration of inpatient versus outpatient stress testing. 3. There was a question of possible atrial fibrillation but in reviewing his EKGs and all of his telemetry he most likely has sinus rhythm with multiple PACs versus wandering atrial pacemaker. As such, without definitive atrial fibrillation, I would not consider anticoagulation and would place him on an aspirin 81 mg daily. 4. 2-D echo has been done and showed overall grossly normal ejection fraction with trace mitral regurgitation as well as trace tricuspid regurgitation. 5. Further recommendations will be made based on the hospital course. Thank you for allowing me to see Damien Arora. If there are any questions, please do not hesitate to call. Pio Monson DO VGP/SSB /11:01 PM /5:46 AM
[2017-04-02 08:00] VITALS: BP 122/67; PULSE 81; RESP 16; TEMP 97; O2SAT 90
[2017-04-02] MEDS ORDERED: LEVOFLOXACIN 750 MG PREMIX INJ 150 ML IV SCH (09:00)
[2017-04-02] MEDS ORDERED: ASPIRIN 81 MG CHEW TAB CHEW SCH (09:00)
[2017-04-02 09:26] LABS: BASOPHIL # 0.1 TH/MM3 (0-0.2); BASOPHIL % 0.3 % (0.0-2.0); EOSINOPHIL % 0.1 % (0.0-4.0); HEMATOCRIT 36.5 % (39.0-51.0); HEMO FLAGS DIFF FINAL; LYMPH % 6.2 % (9.0-44.0); LYMPHOCYTE # 1.2 TH/MM3 (1.0-4.8); MEAN CELL VOLUME 92.2 FL (80.0-100.0); MEAN CORPUSCULAR HEMOGLOBIN 30.8 PG (27.0-34.0); MEAN CORPUSCULAR HGB CONC 33.4 % (32.0-36.0); MONO % 3.7 % (0.0-8.0); NEUT % 89.7 % (16.0-70.0); PLATELET COUNT 257 TH/MM3 (150-450); RED BLOOD COUNT 3.96 MIL/MM3 (4.50-5.90); RED CELL DISTRIBUTION WIDTH 16.6 % (11.6-17.2)
[2017-04-02 09:27] VITALS: O2SAT 98
[2017-04-02] MEDS: FAMOTIDINE 20 MG TAB PO SCH (10:00)
[2017-04-02] MEDS: METOPROLOL TARTRATE 25 MG TAB PO SCH (10:00)
[2017-04-02] MEDS: ENOXAPARIN SODIUM 80 MG/0.8 ML SYRINGE SQ SCH (10:02)
[2017-04-02] MEDS: SODIUM CHLORIDE 0.9% FLUSH 10 ML FLUSH IV FLUSH SCH (10:07)
[2017-04-02 10:16] LABS: BICARBONATE 24.8 MEQ/L (21.0-32.0); HDL CHOLESTEROL 36.7 MG/DL (40.0-60.0); MAGNESIUM 2.2 MG/DL (1.5-2.5); POTASSIUM 4.4 MEQ/L (3.5-5.1)
--- NOTE | 2017-04-02 10:28 | PD.CARD.PN ---
Subjective Subjective Remarks Feeling better today No fever/chills No chest pain SOB better Telemetry: NSR with frequent PACs, no Afib Objective Medications Current Medications Medications (Trade) Dose Ordered Sig/Alek Route Start Time Stop Time Status Last Admin (NS Flush) 2 ml UNSCH PRN IV FLUSH 03/31/17 22:30 (NS Flush) 2 ml BID IV FLUSH 04/01/17 09:00 04/02/17 10:07 (Narcan Inj) 0.4 mg UNSCH PRN IV PUSH 03/31/17 22:30 (Atrovent Neb) 0.5 mg Q6HR NEB NEB 04/01/17 04:00 04/02/17 09:26 (Atrovent Neb) 0.5 mg Q2HR NEB PRN NEB 03/31/17 22:30 (Pepcid) 20 mg DAILY PO 04/01/17 09:00 04/02/17 10:00 (Tylenol) 650 mg Q4H PRN PO 04/01/17 06:45 (Zofran Inj) 4 mg Q6H PRN IV PUSH 04/01/17 06:45 (Colace) 100 mg BID PRN PO 04/01/17 06:45 (Tums Chew) 1,000 mg TID PRN CHEW 04/01/17 06:45 Levofloxacin/ Dextrose 150 ml @ 100 mls/hr DAILY IV 04/02/17 09:00 04/02/17 10:02 Potassium Chloride/Sodium Chloride 1,000 ml @ 64 mls/hr [id number] IV 04/01/17 17:00 04/01/17 17:30 (Lopressor) 12.5 mg Q12HR PO 04/01/17 21:00 04/02/17 10:00 (Pill Splitter) 1 ea UNSCH PRN OTHER 04/01/17 17:00 (Aspirin Chew) 81 mg DAILY CHEW 04/02/17 09:00 04/02/17 10:00 (Lovenox Inj) 40 mg DAILY SQ 04/03/17 09:00 UNV Vital Signs / I&O Vital Signs Date Time Temp Pulse Resp B/P (MAP) Pulse Ox O2 Delivery O2 Flow Rate FiO2 04/02/17 09:27 98 Nasal Cannula 3.00 04/02/17 08:00 97.0 81 16 122/67 (85) 90 04/02/17 04:00 95.7 82 17 115/56 (75) 94 04/02/17 00:00 95.6 67 17 107/58 (74) 98 04/01/17 20:00 94.5 86 17 114/70 (85) 94 04/01/17 20:00 95 04/01/17 16:13 94 Nasal Cannula 2.00 04/01/17 16:00 97.1 95 16 102/63 (76) 94 04/01/17 15:07 3.00 04/01/17 12:00 96.6 85 16 101/59 (73) 94 I/O 04/01/17 04/01/17 04/01/17 04/02/17 04/02/17 04/02/17 07:00 15:00 23:00 07:00 15:00 23:00 Intake Total 490 ml 600 ml 1072 ml Output Total 150 ml Balance 490 ml 600 ml 922 ml Intake Oral 240 ml 600 ml 240 ml IV Total 250 ml 832 ml Output Urine Total 150 ml # Voids 1 3 1 # Bowel Movements 0 Physical Exam GENERAL: NAD, AAOx3 SKIN: Warm and dry. HEAD: Atraumatic. Normocephalic. EYES: Pupils equal and round. No scleral icterus. No injection or drainage. ENT: No nasal bleeding or discharge. Mucous membranes pink and moist. NECK: Trachea midline. No JVD. CARDIOVASCULAR: Regular rate and rhythm with some irregularity. RESPIRATORY: No accessory muscle use. Clear to auscultation. Breath sounds equal bilaterally. GASTROINTESTINAL: Abdomen soft, non-tender, nondistended. Hepatic and splenic margins not palpable. MUSCULOSKELETAL: Extremities without clubbing, cyanosis, or edema. No obvious deformities. NEUROLOGICAL: Awake and alert. No obvious cranial nerve deficits. Motor grossly within normal limits. Five out of 5 muscle strength in the arms and legs. Normal speech. PSYCHIATRIC: Appropriate mood and affect; insight and judgment normal. Laboratory Laboratory Tests Test 04/02/17 09:05 White Blood Count 20.0 TH/MM3 Red Blood Count 3.96 MIL/MM3 Hemoglobin 12.2 GM/DL Hematocrit 36.5 % Mean Corpuscular Volume 92.2 FL Mean Corpuscular Hemoglobin 30.8 PG Mean Corpuscular Hemoglobin Concent 33.4 % Red Cell Distribution Width 16.6 % Platelet Count 257 TH/MM3 Mean Platelet Volume 8.9 FL Neutrophils (%) (Auto) 89.7 % Lymphocytes (%) (Auto) 6.2 % Monocytes (%) (Auto) 3.7 % Eosinophils (%) (Auto) 0.1 % Basophils (%) (Auto) 0.3 % Neutrophils # (Auto) 18.0 TH/MM3 Lymphocytes # (Auto) 1.2 TH/MM3 Monocytes # (Auto) 0.7 TH/MM3 Eosinophils # (Auto) 0.0 TH/MM3 Basophils # (Auto) 0.1 TH/MM3 CBC Comment DIFF FINAL Differential Comment Blood Urea Nitrogen 39 MG/DL Creatinine 1.05 MG/DL Random Glucose 96 MG/DL Calcium Level 8.7 MG/DL Magnesium Level 2.2 MG/DL Sodium Level 143 MEQ/L Potassium Level 4.4 MEQ/L Chloride Level 110 MEQ/L Carbon Dioxide Level 24.8 MEQ/L Anion Gap 8 MEQ/L Estimat Glomerular Filtration Rate 67 ML/MIN Lactic Acid Level 1.1 mmol/L Triglycerides Level 165 MG/DL Cholesterol Level 140 MG/DL LDL Cholesterol 70 MG/DL HDL Cholesterol 36.7 MG/DL Cholesterol/HDL Ratio 3.81 RATIO Assessment and Plan Problem List: (1) Elevated troponin ICD Codes: R74.8 - Abnormal levels of other serum enzymes (2) Pneumonia ICD Codes: J18.9 - Pneumonia, unspecified organism Status: Acute (3) Sepsis ICD Codes: A41.9 - Sepsis, unspecified organism Status: Acute (4) Hypoxia ICD Codes: R09.02 - Hypoxemia Status: Acute Assessment and Plan 1) Present with Sepsis/PNA Con't anti-biotics Elevating WBCs, possible secondary to steroids? 2) ? of Afib, but NSR with frequent PACs/Wandering Pacemaker on telemetry Would not anticoagulate Con't ASA 81mg daily 3) Elevated trop Secondary to sepsis, lactic acidosis, PNA and hypoxemia No chest pain... does not appear to be ACS Con't medical management Discussed consideration of stress testing, most likely outpatient depending on the hospital course 4) Technically difficult echocardiogram, but grossly normal EF, trace MR/TR Problem Qualifiers (1) Pneumonia: Qualified Codes: J18.9 - Pneumonia, unspecified organism (2) Sepsis: Qualified Codes: A41.9 - Sepsis, unspecified organism Pio Conway DO Apr 02, 2017 10:28
[2017-04-02 12:00] VITALS: BP 107/65; PULSE 86; RESP 16; TEMP 97.5; O2SAT 94
[2017-04-02] MEDS ORDERED: VENTAER INH (14:48)
[2017-04-02] MEDS ORDERED: LEVA750T9 PO (14:48)
[2017-04-02] MEDS ORDERED: IPRA17I INH (14:48)
[2017-04-02] MEDS ORDERED: METO25TA3 PO (14:50)
[2017-04-02] MEDS ORDERED: ASPI81 CHEW (14:50)
--- NOTE | 2017-04-02 14:50 | HHI.DCPOC ---
Discharge Care Plan Diagnosis: (1) Elevated troponin (2) Pneumonia Your Health Problems Are: Difficulty with ADL Exercise Tolerance Goals to Promote Your Health * To prevent worsening of your condition and complications * To maintain your health at the optimal level Directions to Meet Your Goals Take your medications as prescribed Follow your dietary instruction Follow activity as directed Keep your appointments as scheduled Take your immunizations and boosters as scheduled If your symptoms worsen call your PCP, if no PCP go to Urgent Care Center or Emergency Room Smoking is Dangerous to Your Health. Avoid second hand smoke Call the 24-hour hour crisis hotline for domestic abuse at Gaetano Hay MD Apr 02, 2017 14:50
[2017-04-02] MEDS ORDERED: ALBUTEROL SULFATE 90 MCG/ACT HFA 8 GM INHALER INH PRN (15:00)
[2017-04-02] MEDS ORDERED: OXYGENDME NAS.CANULA (15:01)
--- NOTE | 2017-04-02 15:04 | HHI.DS ---
Discharge Summary Admission Date Mar 31, 2017 at 23:24 Discharge Date: Apr 02, 2017 Admitting Diagnosis SEPSIS, PNA, AFIB W/RVR (1) Sepsis ICD Code: A41.9 - Sepsis, unspecified organism Diagnosis: Principal Status: Acute (2) Pneumonia ICD Code: J18.9 - Pneumonia, unspecified organism Diagnosis: Principal Status: Acute (3) Hypoxia ICD Code: R09.02 - Hypoxemia Diagnosis: Principal Status: Acute Procedures none Brief History - From Admission couldnt walk more than 5 feet or else i collapsed something went fast when i walked and i had to sit down thats the reason to come here was short of breath started on friday- about 3 days ago no fever coughing a lot- and has productive yellow sputum- can see that copious sputum at bedside also felt dizziness with these palpitations and thats why stopped- and dizziness will go away took some cough medicine over the counter does not go to any doc no med hx that he knows of ' CBC/BMP: 04/02/17 0905 04/02/17 0905 Significant Findings Laboratory Tests Test 03/31/17 19:15 03/31/17 19:45 03/31/17 21:30 04/01/17 01:59 White Blood Count 15.8 TH/MM3 (4.0-11.0) 17.7 TH/MM3 (4.0-11.0) Red Blood Count 4.25 MIL/MM3 (4.50-5.90) 3.79 MIL/MM3 (4.50-5.90) Hematocrit 38.7 % (39.0-51.0) 34.6 % (39.0-51.0) Neutrophils (%) (Auto) 92.0 % (16.0-70.0) 96.4 % (16.0-70.0) Lymphocytes (%) (Auto) 4.0 % (9.0-44.0) 1.4 % (9.0-44.0) Neutrophils # (Auto) 14.5 TH/MM3 (1.8-7.7) 17.1 TH/MM3 (1.8-7.7) Lymphocytes # (Auto) 0.6 TH/MM3 (1.0-4.8) 0.2 TH/MM3 (1.0-4.8) Blood Urea Nitrogen 34 MG/DL (7-18) 28 MG/DL (7-18) Random Glucose 124 MG/DL (74-106) 227 MG/DL (74-106) Alanine Aminotransferase (ALT/SGPT) 9 U/L (12-78) Total Bilirubin 1.4 MG/DL (0.2-1.0) Estimat Glomerular Filtration Rate 62 ML/MIN (>89) 65 ML/MIN (>89) Troponin I LESS THAN 0.02 NG/ML B-Type Natriuretic Peptide 101 PG/ML (0-100) Blood Gas Oxygen Saturation 89 % (90-100) Arterial Blood pH 7.50 (7.380-7.420) Arterial Blood Partial Pressure CO2 30 mmHg (38-42) Arterial Blood Partial Pressure O2 55 mmHG (61-120) Urine Specific [place] GREATER THAN 1.050 Urine Protein 30 mg/dL (NEG-TRACE) Urine Ketones 40 mg/dL (NEG) Urine Mucus FEW /lpf (OCC) Hemoglobin 11.7 GM/DL (13.0-17.0) Calcium Level 8.3 MG/DL (8.5-10.1) Test 04/01/17 10:00 04/01/17 10:08 04/02/17 09:05 Troponin I 0.18 NG/ML (0.02-0.05) Lactic Acid Level 3.2 mmol/L (0.4-2.0) White Blood Count 20.0 TH/MM3 (4.0-11.0) Red Blood Count 3.96 MIL/MM3 (4.50-5.90) Hemoglobin 12.2 GM/DL (13.0-17.0) Hematocrit 36.5 % (39.0-51.0) Neutrophils (%) (Auto) 89.7 % (16.0-70.0) Lymphocytes (%) (Auto) 6.2 % (9.0-44.0) Neutrophils # (Auto) 18.0 TH/MM3 (1.8-7.7) Blood Urea Nitrogen 39 MG/DL (7-18) Chloride Level 110 MEQ/L (98-107) Estimat Glomerular Filtration Rate 67 ML/MIN (>89) Triglycerides Level 165 MG/DL (42-150) HDL Cholesterol 36.7 MG/DL (40.0-60.0) Imaging Last Impressions Chest X-Ray 03/31/17 1915 Signed Impressions: Service Date/Time: Friday, March 31, 2017 19:33 - CONCLUSION: No acute disease. Baldemar Donato MD CT Angiography 03/31/17 0000 Signed Impressions: Service Date/Time: Friday, March 31, 2017 21:02 - CONCLUSION: 1. No evidence of pulmonary embolism. 2. Patchy opacities within the right mid lung anteriorly as well as the posterior lung bases bilaterally suggestive of probable pneumonia. 3. Underlying emphysematous changes bilaterally. 4. Coronary artery calcifications. 5. Biapical fibrotic scarring. Baldemar Donato MD PE at Discharge GENERAL: Well-developed and well-nourished SKIN: Warm and dry. HEAD: Atraumatic. Normocephalic. EYES: Pupils equal and round. No scleral icterus. No injection or drainage. ENT: No nasal bleeding or discharge. Mucous membranes pink and moist. NECK: Trachea midline. No JVD. CARDIOVASCULAR: Regular rate and rhythm. RESPIRATORY: No accessory muscle use. Clear to auscultation. Decreased Breath sounds equal bilaterally. GASTROINTESTINAL: Abdomen soft, non-tender, nondistended. MUSCULOSKELETAL: Extremities without clubbing, cyanosis, or edema. No obvious deformities. NEUROLOGICAL: Awake and alert. No obvious cranial nerve deficits. Motor grossly within normal limits. Five out of 5 muscle strength in the arms and legs. Normal speech. PSYCHIATRIC: Appropriate mood and affect; insight and judgment normal. Hospital Course Pneumonia with hypoxia and severe sepsis. Clinically improved switch to po Levaquin . Oxygen walk test Leukocytosis secondary to steroids. Frequent PVC no afib. Telemetry shows sinus rhythm. Continue aspirin for now. Switched Cardizem to Lopressor. Follow-up echocardiogram unremarkable. copd exacerbation . Improved continue nebulization. Trop bump with coronary calcifications. Denies chest pain. Continue aspirin and Lopressor. Consulted cardiology, outpatient workup. LDL 70 heart healthy diet dvt prophylaxis with lovenox gi prophylaxis with Pepcid Pt Condition on Discharge: Stable Discharge Disposition: Discharge Home Discharge Time: > 30 minutes Discharge Instructions DIET: Follow Instructions for: Heart Healthy Diet Activities you can perform: Regular-No Restrictions Activities to Avoid: Driving Follow up Referrals: Cardiology - 1 Week @ [facility] PCP Follow-up - 1 Week New Orders: X-RAY CHEST PA & LAT - 6 Weeks New Medications: Albuterol 18 GM Inh (Ventolin Hfa 18 GM Inh) 90 Mcg/Act Aer 2 PUFF INH Q4H PRN for SHORTNESS OF BREATH, #1 INHALER 0 Refills Ipratropium HFA 12.9 GM Inh (Atrovent HFA 12.9 GM Inh) 17 Mcg/Actuation Aer 2 PUFF INH Q6HR for Breathing Treatment, #1 INHALER 0 Refills Levofloxacin (Levaquin) 750 Mg Tablet 750 MG PO DAILY for Infection, #5 TAB 0 Refills Oxygen (O2) (Oxygen (O2)) Device LITER THOM.CANULA CONTINUOUS for Prevent Hypoxemia, #2 Oxygen Concentrator Portable Gaseous 2 L/min via Nasal Canula Continuous For 99 months Aspirin (Tgt Aspirin) 81 Mg Chw 81 MG CHEW DAILY for Prevent Blood Clot, #30 EA Metoprolol Tartrate (Metoprolol Tartrate) 25 Mg Tab 12.5 MG PO Q12HR for Regulate Heart Beat, #60 TAB Continued Medications: Multiple Vitamins W/ Minerals (Multi Vitamin and Mineral) 7.5 Mg Iron-400 Mcg Tab Gaetano Hay MD Apr 02, 2017 15:04
--- NOTE | 2017-04-02 15:06 | HHI.DCPOC ---
Discharge Care Plan Diagnosis: (1) Pneumonia (2) Elevated troponin (3) Atrial fibrillation with RVR (4) Sepsis Your Health Problems Are: Cough Shortness of Breath Goals to Promote Your Health * To prevent worsening of your condition and complications * To maintain your health at the optimal level Directions to Meet Your Goals Take your medications as prescribed Follow your dietary instruction Follow activity as directed Keep your appointments as scheduled Take your immunizations and boosters as scheduled If your symptoms worsen call your PCP, if no PCP go to Urgent Care Center or Emergency Room Smoking is Dangerous to Your Health. Avoid second hand smoke Call the 24-hour hour crisis hotline for domestic abuse at Francia Hernandez Apr 02, 2017 15:06
[2017-04-03] MEDS ORDERED: ENOXAPARIN SODIUM 40 MG/0.4 ML SYRINGE SQ SCH (09:00)
== END 2017-04-02 17:48 | disposition home or self-care (01) | DRG 871 ==
LOC: NEPE 18:47 → NEDA 22:18 → INTOOBSV 22:18 → OBSVTOIN 23:24 → N07B 04-01 00:41
PROVIDERS: ADMIT Internal Medicine; ATTEND Internal Medicine
DX: A41.9 Sepsis, unspecified organism (principal); J18.9 Pneumonia, unspecified organism; E87.2 Acidosis; J44.0 Chronic obstructive pulmonary disease with (acute) lower respiratory infection; J44.1 Chronic obstructive pulmonary disease with (acute) exacerbation; R09.02 Hypoxemia; R00.0 Tachycardia, unspecified; H91.92 Unspecified hearing loss, left ear; R74.8 Abnormal levels of other serum enzymes; I49.3 Ventricular premature depolarization; R65.20 Severe sepsis without septic shock; Z87.891 Personal history of nicotine dependence
CPT/HCPCS: 36600; 71010; 71275; 80048; 80053; 80061; 81001; 82550; 82805; 83605; 83735; 83880; 84484; 85025; 85610; 85730; 87040; 87070; 87205; 87804; 93005; 93306; 94620; 94640; 94664; 96374; 96375; J0456; J0696; J1650; J1956; J2930; J3480; J7050; J7644; Q9967